=== PATIENT | female | born 1990 | race American Indian/Alaskan Native ===

== ENCOUNTER 2019-09-22 22:19 | Observation (INO) | payer BC ==
[2019-09-22] MEDS ORDERED: methylPREDNISolone Sod Succinate 125 MG/2 ML INJ ONE (22:28)
[2019-09-22] MEDS ORDERED: MAGNESIUM SULFATE 2 GM/50 ML BAG IV ONE ×2 (22:28→22:40)
[2019-09-22] MEDS ORDERED: IPRATROPIUM 0.02% NEBU 2.5 ML IH ONE ×2 (22:29→22:42)
[2019-09-22] MEDS ORDERED: ALBUTEROL 2.5 MG/3 ML NEBU IH ONE ×2 (22:29→22:41)
[2019-09-22] MEDS ORDERED: SODIUM CHLORIDE 0.9% 1000 ML 1,000 ML IV ONE (22:31)
--- NOTE | 2019-09-22 22:36 | Emergency Department Report ---
HPI - General Chief Complaint: Dyspnea/Respdistress Time Seen by Provider: 09/22/19 22:26 - HPI HPI: This patient presents to the emergency department from an urgent care with complaint of shortness breath, wheezing that she feels is consistent with an as thma exacerbation. They were at the [facility] earlier in the day which is what she believes caused the symptoms to start. She has been using her albuterol inhaler and nebulizer treatments without any relief. She went to an urgent care which found her to have a pulse ox of about 90% and they were told to go directly to the emergency department. She denies any fever, chest pain, lower extremity edema. No other past medical history. Denies any tobacco or illicit drug use. No recent travel, recent surgery or immobility. She has never required admission or intubation for her asthma. ED Review of Systems ROS: Stated complaint: DIFFICULTY IN BREATHING Other details as noted in HPI Comment: All other systems reviewed and negative Constitutional: denies: chills, fever Eyes: denies: eye pain, vision change ENT: denies: ear pain, throat pain Respiratory: cough, shortness of breath, wheezing Cardiovascular: denies: chest pain, palpitations Gastrointestinal: denies: abdominal pain, vomiting Genitourinary: denies: dysuria, discharge Musculoskeletal: denies: back pain, arthralgia Skin: denies: rash, lesions Neurological: denies: headache, weakness Physical Exam - Physical Exam Physical Exam: GENERAL: The patient is well-developed well-nourished. HEENT: Normocephalic. Atraumatic. Patient has moist mucous membranes. EYES: Extraocular motions are intact. NECK: Supple. Trachea is midline. CHEST/LUNGS: Moderate wheezing throughout the chest. There is tachypnea with some accessory muscle use. Mild conversational dyspnea. There is respiratory distress noted. HEART/CARDIOVASCULAR: Regular. There is moderate tachycardia. There is no murmur. ABDOMEN: Abdomen is soft, nontender. Patient has normal bowel sounds. There is no abdominal distention. SKIN:Skin is warm and dry. . NEURO: The patient is awake, alert, and oriented. The patient is cooperative. The patient has no focal neurologic deficits. Normal speech. MUSCULOSKELETAL: There is no tenderness or deformity. There is no evidence of acute injury. ED Medical Decision Making - Lab Data Result diagrams: 09/22/19 22:51 09/22/19 22:51 - Radiology Data Radiology results: image reviewed interpreted by me: Chest x-ray does not show any pleural effusions, pneumonia, pneumothorax, focal consolidation, or any other acute process. - Medical Decision Making This patient presents to the emergency department with a few hours of shortness of breath, wheezing, coughing. She does appear to have some mild respiratory distress as she has some tachypnea, conversational dyspnea and some accessory muscle use. Patient was placed on supplemental oxygen and given a continuous breathing treatment. She was also given Solu-Medrol and magnesium. A chest x- ray was completed that does not show any pleural effusions, pneumonia, pneumothorax, focal consolidation, or any other acute process. Patient's labs have been unremarkable according CBC, metabolic panel and d-dimer level. Throughout her ED course the patient continues to have some hypoxia. On 2 L nasal cannula patient appears to stay between 90 and 93%. When the patient takes off the oxygen she is seen going down as low as 86%, and this is without testing oxygen with ambulation. The patient is not oxygen dependent at home and given the hypoxia and increased work of breathing with any exertion the patient will need admission for further evaluation and treatment. She was accepted for admission by the hospitalist, Dr. Guadalupe. - Differential Diagnosis asthma, pneumonia, PE, COPD, pneumothorax Critical Care Time: No Critical care attestation.: If time is entered above; I have spent that time in minutes in the direct care of this critically ill patient, excluding procedure time. ED Disposition Clinical Impression: Hypoxia, Shortness of breath Asthma exacerbation Qualifiers: Asthma severity: unspecified severity Asthma persistence: unspecified Qualified Code(s): J45.901 - Unspecified asthma with (acute) exacerbation Disposition: OP ADMIT IP TO THIS HOSP Is pt being admited?: Yes Condition: Serious Instructions: Asthma (ED), Hypoxia (ED) Additional Instructions: Please return to the emergency department immediately if you change your mind about admission and further evaluation and treatment, or with any acute distress. Otherwise, please follow up with your primary care physician as soon as possible. Forms: AMA Form Time of Disposition: 03:29
[2019-09-22] MEDS ORDERED: methylPREDNISolone Sod Succinate 125 MG/2 ML INJ IV ONE (22:41)
[2019-09-22] MEDS ORDERED: ACETAMINOPHEN 325 MG TAB PO ONE (22:55)
--- NOTE | 2019-09-22 23:04 | XRay Report ---
CHEST 1 VIEW INDICATION: SOB. COMPARISON: None FINDINGS: Support devices: None. Heart: Within normal limits. Lungs/Pleura: No acute air space or interstitial disease. Additional findings: None. IMPRESSION: 1. No acute findings. Signer Name: Matthew Gamble MD Signed: 09/22/2019 11:00 PM Workstation Name: [id number]
[2019-09-22 23:08] LABS: Basophils % (Auto) 0.4 % (0.0-1.8); Eosinophils % (Auto) 0.4 % (0.0-4.3); Hematocrit 40.5 % (30.3-42.9); Hemoglobin 13.4 gm/dl (10.1-14.3); Lymphocytes # (Auto) 0.4 K/mm3 (1.2-5.4); Lymphocytes % (Auto) 9.8 % (13.4-35.0); Mean Corpuscular HGB Conc 33 % (30-34); Mean Corpuscular Volume 88 fl (79-97); Monocytes # (Auto) 0.4 K/mm3 (0.0-0.8); Monocytes % (Auto) 9.4 % (0.0-7.3); Platelet Count 212 K/mm3 (140-440); Red Blood Count 4.62 M/mm3 (3.65-5.03); Red Cell Distribution Width 13.6 % (13.2-15.2)
[2019-09-22] MEDS ORDERED: KETOROLAC 30 MG/1 ML INJ IV ONE (23:20)
[2019-09-22 23:25] LABS: BUN/Creatinine Ratio 10; Blood Urea Nitrogen 7 mg/dL (7-17); Calcium 8.9 mg/dL (8.4-10.2); Hemolysis Index 14
[2019-09-23] MEDS ORDERED: ACETAMINOPHEN 325 MG TAB PO PRN (05:15)
[2019-09-23] MEDS ORDERED: ONDANSETRON 4 MG/2 ML INJ IV PRN (05:15)
--- NOTE | 2019-09-23 05:15 | History and Physical Report ---
History of Present Illness Date of admission: 09/23/19 03:23 History of present illness: 28-year-old man with a history of asthma came to the emergency room for evaluation. She states that she developed shortness of breath that progressively got worse throughout the day. She has been using her nebulizer treatment without any improvement in her symptoms, complaining of a cough productive of green-yellow phlegm, subjective fever and chills. In the emergency room she was given steroids, magnesium and breathing treatment, she was hypoxic, supplemental oxygen initiated. The patient is being admitted for asthma exacerbation Review of systems Constitutional: no weight loss, fever, chills Ears, eyes, nose, mouth and throat: no nasal congestion, no nasal discharge, no sinus pressure, no vision change, no red eye. Neck: No neck pain or rigidity. Cardiovascular: no palpitations Respiratory:+ cough, +shortness of breath Gastrointestinal: no abdominal pain hematochezia Genitourinary : no frequency , no hematuria Musculoskeletal: no joint swelling or muscle ache Integumentary: no rash, no pruritis Neurological: no parathesias, no numbness, no focal weakness Endocrine: no cold or heat intolerance, no polyuria or polydipsia Hematologic/Lymphatic: no easy bruising, no easy bleeding, no gland swelling Allergic/Immunologic: no urticaria, no angioedema. PAST MEDICAL HISTORY: Asthma PAST SURGICAL HISTORY: foot surgery SOCIAL HISTORY: No alcohol, no drugs, or tobacco Y HISTORY: Hypertension Medications and Allergies Allergies Allergy/AdvReac Type Severity Reaction Status Date / Time No Known Allergies Allergy Verified 09/22/19 22:44 Active Meds: Active Medications Enoxaparin Sodium (Enoxaparin) 40 mg SUB-Q QDAY@1000 [facility] Exam - Physical Exam Narrative exam: Gen. appearance: Patient lying in bed, no apparent distress HEENT: Normocephalic, atraumatic, pupils equally round and reactive to light, eyes are , extraocular movement intact, and no sclericterus,. No JVD or thyromegaly or nodule,neck supple, no carotid bruit ,mucous membranes moist, no exudate or erythema Heart: S1, S2, regular rate and rhythm Lungs: Wheezing bilaterally, breathing comfortable Abdomen: Positive bowel sounds, non-tender, nondistended, no organomegaly Extremity:no edema cyanosis, clubbing Skin: no rash, dry, warm Neuro: Cranial nerves 2-12 intact, motor and sensory intact - Constitutional Vitals: Temp Pulse Resp BP Pulse Ox 98.1 F 98 H 18 123/79 96 09/23/19 04:40 09/23/19 04:40 09/23/19 04:40 09/23/19 04:40 09/23/19 04:40 Results - Labs CBC & Chem 7: 09/22/19 22:51 09/22/19 22:51 Labs: Abnormal lab results 09/22/19 09/22/19 Range/Units 22:51 22:51 WBC 4.4 L (4.5-11.0) K/mm3 Lymph % (Auto) 9.8 L (13.4-35.0) % [place] % (Auto) 9.4 H (0.0-7.3) % Lymph # 0.4 L (1.2-5.4) K/mm3 Seg Neutrophils % 80.0 H (40.0-70.0) % Sodium 136 L (137-145) mmol/L Potassium 3.5 L (3.6-5.0) mmol/L Carbon Dioxide 20 L (22-30) mmol/L Glucose 111 H (65-100) mg/dL - Imaging and Cardiology Chest x-ray: report reviewed Assessment and Plan Assessment Asthma exacerbation Start high-dose IV steroids, nebulizer treatment, Levaquin Hypokalemia Replete potassium DVT prophylaxis
[2019-09-23] MEDS ORDERED: levoFLOXacin 750 MG TAB PO SCH (05:18)
[2019-09-23] MEDS ORDERED: POTASSIUM CHLORIDE ER 20 MEQ TAB PO ONE (05:19)
[2019-09-23] MEDS ORDERED: IPRATROPIUM/ALBUTEROL SULFATE 3 ML AMPUL.NEB IH ONE (05:42)
[2019-09-23] MEDS: methylPREDNISolone Sod Succinate 125 MG/2 ML INJ IV SCH ×2 (06:16→11:09)
[2019-09-23 06:58] LABS: Hematocrit 40.6 % (30.3-42.9); Hemoglobin 13.5 gm/dl (10.1-14.3); Mean Corpuscular HGB Conc 33 % (30-34); Mean Corpuscular Volume 89 fl (79-97); Platelet Count 224 K/mm3 (140-440); Red Blood Count 4.59 M/mm3 (3.65-5.03); Red Cell Distribution Width 13.8 % (13.2-15.2)
[2019-09-23 07:22] LABS: BUN/Creatinine Ratio 9; Blood Urea Nitrogen 7 mg/dL (7-17); Calcium 9.4 mg/dL (8.4-10.2); Hemolysis Index 7
[2019-09-23] MEDS ORDERED: ALBUTEROL 2.5 MG/3 ML NEBU IH PRN ×3 (07:47→12:41)
[2019-09-23] MEDS ORDERED: IPRATROPIUM/ALBUTEROL SULFATE 3 ML AMPUL.NEB IH SCH (08:00)
[2019-09-23] MEDS: BUDESONIDE 0.5 MG/2 ML NEBU IH SCH ×2 (08:33→13:42)
[2019-09-23] MEDS: IPRATROPIUM/ALBUTEROL SULFATE 3 ML AMPUL.NEB IH SCH ×2 (08:37→13:42)
[2019-09-23] MEDS ORDERED: ARFORMOTEROL 15 MCG/2 ML NEBU IH SCH (09:00)
[2019-09-23 09:42] LABS: Basophils % (Manual) 0 % (0.0-1.8); Eosinophils % (Manual) 0 % (0.0-4.3); Total Cells Counted 100
[2019-09-23 09:43] LABS: Platelet Estimate Consistent w Auto; RBC Morphology Normal
[2019-09-23] MEDS ORDERED: ENOXAPARIN 40 MG/0.4 ML INJ SUB-Q SCH (10:00)
[2019-09-23] MEDS ORDERED: ENOXAPARIN 30 MG/0.3 ML INJ SUB-Q SCH (10:00)
--- NOTE | 2019-09-23 11:55 | Event Note ---
Date: 09/23/19 Patient with acute resp failure due to asthma exacerbation. I have seen and examined her.
[2019-09-23 12:42] VITALS: BP 119/80
--- NOTE | 2019-09-23 13:38 | Consultation ---
History of Present Illness Consult date: 09/23/19 Requesting physician: BRAULIO BARRAZA Reason for consult: asthma (AE-Asthma) History of present illness: PULMONARY/CCM CONSULT NOTE (Full dictation # ) Please see dictated notes for full details Medications and Allergies Allergies Allergy/AdvReac Type Severity Reaction Status Date / Time No Known Allergies Allergy Verified 09/22/19 22:44 Active Meds: Active Medications Acetaminophen (Tylenol) 650 mg PO Q4H PRN PRN Reason: Pain MILD(1-3)/Fever >100.5/POWELL Last Admin: 09/23/19 11:09 Dose: 650 mg Documented by: Albuterol (Proventil) 2.5 mg IH Q3H PRN PRN Reason: Shortness Of Breath Albuterol/Ipratropium (Duoneb *Not For Prn Use*) 1 ampul IH Q6HRT [facility] Last Admin: 09/23/19 08:37 Dose: Not Given Documented by: Arformoterol Tartrate (Brovana Nebu) 15 mcg IH Q12HRT [facility] Last Admin: 09/23/19 08:33 Dose: Not Given Documented by: Budesonide (Pulmicort) 0.5 mg IH Q12HRT [facility] Last Admin: 09/23/19 08:33 Dose: Not Given Documented by: Enoxaparin Sodium (Enoxaparin) 40 mg SUB-Q QDAY@1000 [facility] Last Admin: 09/23/19 09:48 Dose: 40 mg Documented by: Levofloxacin (Levaquin) 750 mg PO QDAY [facility] Last Admin: 09/23/19 06:16 Dose: 750 mg Documented by: Methylprednisolone Sodium Succinate (Solu-Medrol) 125 mg IV Q6HR [facility] Last Admin: 09/23/19 11:09 Dose: 125 mg Documented by: Ondansetron HCl (Zofran) 4 mg IV Q8H PRN PRN Reason: Nausea And Vomiting Sodium Chloride (Sodium Chloride Flush Syringe 10 Ml) 10 ml IV BID [facility] Last Admin: 09/23/19 11:10 Dose: 10 ml Documented by: Sodium Chloride (Sodium Chloride Flush Syringe 10 Ml) 10 ml IV PRN PRN PRN Reason: LINE FLUSH Physical Examination Vital signs: Vital Signs Pulse Ox 86 09/22/19 22:24 Results - Laboratory Findings CBC and BMP: 09/23/19 06:23 09/23/19 06:23 PT/INR, D-dimer D-Dimer 187.18 ng/mlDDU (0-234) 09/23/19 00:58 Abnormal lab findings: Abnormal Labs 09/22/19 09/22/19 09/23/19 22:51 22:51 06:23 WBC 4.4 L Lymph % (Auto) 9.8 L [place] % (Auto) 9.4 H Lymph # 0.4 L Seg Neutrophils % 80.0 H Seg Neuts % (Manual) 97.0 H Lymphocytes % (Manual) 1.0 L Lymphocytes # (Manual) 0.1 L Sodium 136 L Potassium 3.5 L Carbon Dioxide 20 L Glucose 111 H 09/23/19 06:23 WBC Lymph % (Auto) [place] % (Auto) Lymph # Seg Neutrophils % Seg Neuts % (Manual) Lymphocytes % (Manual) Lymphocytes # (Manual) Sodium Potassium Carbon Dioxide 19 L Glucose 165 H
--- NOTE | 2019-09-23 17:51 | Discharge Summary ---
Providers - Providers Date of Admission: 09/23/19 03:23 Date of discharge: 09/23/19 Attending physician: BRAULIO BARRAZA 09/23/19 07:52 Consult to Physician [CONS] Routine Comment: Consulting Provider: IDANIA GOVEA Physician Instructions: Reason For Exam: Asthma exacerbation Primary care physician: [employer] [employer] Hospitalization Condition: Fair Disposition: [id number] LEFT AGAINST MED ADVICE Exam - Constitutional Vitals: Temp Pulse Resp BP Pulse Ox 99.0 F 119 H 18 119/80 98 09/23/19 11:48 09/23/19 13:59 09/23/19 13:59 09/23/19 11:48 09/23/19 13:59 Plan Follow up with: PRIMARY CARE, [Primary Care Provider] - 3-5 Days Forms: AMA Form
== END 2019-09-23 16:30 | disposition left against medical advice (07) ==
LOC: ED 22:19 → INTOOBSV 09-23 03:23 → 3A 09-23 03:23
PROVIDERS: ADMIT Internal Medicine; ATTEND Internal Medicine
DX: J45.901 Unspecified asthma with (acute) exacerbation (principal); R09.02 Hypoxemia
CPT/HCPCS: 36415; 36600; 71045; 80048; 84703; 85007; 85025; 85379; 87400; 94640; 94644; 94760; 96365; 96372; 96375; 96376; 99291; G0378; J1650; J1885; J2930; J3475; J7030; 96374